=== PATIENT | male | born 1980 | race Caucasian/White ===

== ENCOUNTER 2017-03-26 20:38 | Emergency (ER) | payer OTHER ==
--- NOTE | ~2017-03-26 | CR111 ---
[facility] A Service of [facility] & [facility] RADIOLOGY TEXT RESULTS PATIENT: HEIDI ROQUE LOCATION: [facility] : 82 UNIT #: [id number] AGE: [address]: Amanda Lagos APRN SEX: M ORDER DR: [id number] [facility] [address] [place], [place] [address] [id number] E MR#: [id number] Acc #: [id number] NAME: HEIDI ROQUE : 1980 SEX: M STUDY DATE/TIME: UNIT: [facility] ROOM: STUDY DESCRIPTION: CR Finger 2 View 3rd Rt Attending Physician: Amanda Lagos A.P.R.N. Ordering Physician: Amanda Lagos A.P.R.N. Primary Care Physician: No Primary Care Physician MEDICAL IMAGING REPORT This report is preliminary unless electronic signature is present EXAM Right third digit 03/26 at 2225 hours. INDICATIONS Pain, swelling and redness with open wound for 3 days. Patient was bitten by a spider 3 days ago. FINDINGS Three views of the third digit were obtained. There is soft tissue swelling in the third digit with a soft tissue defect in the mid finger on the radial side. No radiopaque foreign body is seen. The bones are normal. No soft tissue gas. IMPRESSION Soft tissue swelling with soft tissue defect in the mid digit. No soft tissue gas or radiopaque foreign body. Dictated by... Cal Black Jr., M.D. THIS IS AN ELECTRONICALLY VERIFIED REPORT Cal Black Jr., M.D. at 03/27/2017 9:51 PM GOPAL/lucille TD: 03/27/2017 06:28 JOB #: [id number] MEDICAL IMAGING REPORT Page 1 of 1 COPY
[~2017-03-26 20:38] MED LIST: BACTRIM DS TABL1 TAB PO; VICODIN PO
[2017-03-26 22:42] LABS: BASOPHIL% 0.2 % (0-2.5); EOSINOPHIL# 0.1 X10e3 (0-0.7); HEMATOCRIT 38.5 % (38.0-50.0); HEMOGLOBIN 12.4 gm/dL (13.0-16.0); LYMPHOCYTE% 22.2 % (17.0-45.0); MEAN CELL VOLUME 87.2 FL (83-96); MEAN CORPUSCULAR HGB CONC 32.1 g/dL (30-36); MEAN PLATELET VOLUME 7.4 FL (6.5-11.5); MONOCYTE# 0.5 X10e3 (0-1.0); MONOCYTE% 5.5 % (3.0-12.0); NEUTROPHIL# 6.3 X10e3 (1.5-7.1); NEUTROPHIL% 71.1 % (40-75); PLATELET COUNT 263 X10e3 (140-420); RED BLOOD COUNT 4.42 X10e (3.90-5.60); RED CELL DISTRIBUTION WIDTH 13.7 % (11.0-15.5); WHITE BLOOD COUNT 8.9 X10e3 (4.0-10.5)
[2017-03-26 22:47] LABS: DIFF IND NO
[2017-03-26 23:09] LABS: ALBUMIN SERUM 3.6 g/dL (3.5-5.0); BILIRUBIN,TOTAL 0.3 mg/dL (0.2-2.0); BUN/CREATININE RATIO 14.28; CALCIUM SERUM 8.2 mg/dL (8.4-10.2); CREATININE SERUM 0.7 mg/dL (0.6-1.4); GLOM FILT RATE Estimated 122.3 mL/min (>60); POTASSIUM 3.1 mmol/L (3.5-5.1); PROTEIN TOTAL SERUM 7.3 g/dL (6.0-8.3)
[2017-03-26 23:10] LABS: BILIRUBIN, DIRECT 0.1 mg/dL (0.0-0.2); BILIRUBIN,INDIRECT 0.2 mg/dL (0.0-0.9)
== END 2017-03-26 23:57 | disposition home or self-care (01) ==
LOC: CED 20:38 → CFTX 20:38
PROVIDERS: Nurse Practitioner
DX: L03.011 Cellulitis of right finger (principal); F17.210 Nicotine dependence, cigarettes, uncomplicated; Z79.899 Other long term (current) drug therapy
CPT/HCPCS: 36415; 73140; 80048; 80076; 83605; 85025; 87040; 96360; 99283